=== PATIENT | male | born 1950 | race Hispanic/Latino ===

== ENCOUNTER → 2020-12-05 | Outpatient (CLI) | payer MEDICARE ==
[~2020-12-05] MED LIST: CHOL200074 PO; GLIP5TAB11 PO; LEVO50TA11 PO; LISI20TA24 PO; METF-444 PO; OMEG1CAP6 PO; SIMVASTATIN PO
== END | disposition home or self-care (01) ==
LOC: RAH 10:56
PROVIDERS: ATTEND Family Medicine
DX: M47.816 Spondylosis without myelopathy or radiculopathy, lumbar region (principal); M48.07 Spinal stenosis, lumbosacral region; M47.812 Spondylosis without myelopathy or radiculopathy, cervical region; M48.03 Spinal stenosis, cervicothoracic region
CPT/HCPCS: 72040; 72100

== ENCOUNTER 2020-12-17 11:17 | Inpatient (IN) | payer MEDICARE ==
[~2020-12-17] VITALS: Ht 152.4 cm; Wt 143.8 kg
[2020-12-17 11:40] LABS: BASOPHILS % (AUTO) 0.5 % (0.0-5.0); EOSINOPHILS % (AUTO) 1.7 % (0.0-8.0); HEMATOCRIT 36.5 % (42-54); LYMPHOCYTES % (AUTO) 29.1 % (21.0-51.0); MEAN CORPUSCULAR HEMOGLOBIN 29.5 pg (27.0-33.0); MEAN CORPUSCULAR VOLUME 86.9 fL (79-99); MONOCYTES % (AUTO) 7.6 % (3.0-13.0); NEUTROPHILS % (AUTO) 60.8 % (40.0-77.0); PLATELET COUNT (AUTO) 172 K/uL (130-400); RED CELL DISTRIBUTION WIDTH 13.5 % (11.0-15.5); WHITE BLOOD COUNT (AUTO) 7.5 K/uL (4.8-10.8)
[2020-12-17 11:41] VITALS: BP 185/83
[2020-12-17 12:00] LABS: ALBUMIN 4.2 g/dL (3.5-5.0); BILIRUBIN,TOTAL 0.8 mg/dL (0.2-1.0); POTASSIUM 4.4 mmol/L (3.5-5.1); TOTAL PROTEIN, SERUM 7.5 g/dL (6.0-8.3)
[2020-12-17] MEDS ORDERED: NITROGLYCERIN 1GM OINT 1 INCH/1GM TD ONE (12:00)
[2020-12-17] MEDS ORDERED: ASPIRIN 325MG EC TAB PO ONE (12:00)
[2020-12-17 13:11] VITALS: BP 178/91
[2020-12-17] MEDS ORDERED: DEXTROSE 50%-WATER 50 ML DISP.SYRIN IV PRN (14:30)
[2020-12-17] MEDS ORDERED: ONDANSETRON 4MG INJ IVP PRN (14:30)
[2020-12-17] MEDS ORDERED: POTASSIUM CHLORIDE 10% ELIXIR 20 MEQ/15 ML UDCUP PO PRN (14:30)
[2020-12-17] MEDS ORDERED: GLUCAGON 1MG KIT 1 MG ML IM PRN (14:30)
[2020-12-17] MEDS ORDERED: KCL 20 MEQ ERTAB PO PRN (14:30)
[2020-12-17] MEDS ORDERED: LIDOCAINE HCL-MPF 1% 2ML VIAL IV PRN ×2 (14:30)
[2020-12-17] MEDS ORDERED: ACETAMINOPHEN 325 MG TAB PO PRN (14:30)
[2020-12-17] MEDS ORDERED: POTASSIUM CHLORIDE 20MEQ/100ML 100 ML IV PRN ×2 (14:30)
[2020-12-17] MEDS: NITROGLYCERIN 1GM OINT 1 INCH/1GM TD SCH ×2 (15:21→22:53)
[2020-12-17] MEDS: LIDOCAINE 5% TOPICAL PATCH TP SCH (15:21)
[2020-12-17] MEDS: ENOXAPARIN SODIUM 30 MG/0.3 ML SQ SCH (15:23)
[2020-12-17] MEDS ORDERED: MAGNESIUM 2GM PREMIX 50ML 50 ML IV PRN (15:30)
[2020-12-17] MEDS: INSULIN HUMULIN R 100 UNIT/ML 3ML SQ SCH ×2 (16:30→21:00)
[2020-12-17] MEDS: KETOROLAC 15MG/ML VIAL (15MG/ML) IV PRN (17:53)
[2020-12-17] MEDS ORDERED: FAMOTIDINE 20MG VIAL IV SCH (21:00)
[2020-12-17] MEDS: FAMOTIDINE 20MG TAB PO SCH (21:43)
[2020-12-17] MEDS ORDERED: LISINOPRIL 20 MG TABLET PO SCH (22:00)
[2020-12-17 23:19] VITALS: BP 179/86
[2020-12-17 23:38] LABS: APPEARANCE,URINE Clear (CLEAR); BILIRUBIN,URINE Negative (NEGATIVE); COLOR,URINE Yellow (YELLOW); GLUCOSE, URINE (UA) Negative (NEGATIVE); KETONES,URINE Negative (NEGATIVE); LEUKOCYTE ESTERASE ,URINE Negative (NEGATIVE); NITRATE,URINE Negative (NEGATIVE); OCCULT BLOOD,URINE Negative (NEGATIVE); PH,URINE 6.5 (5.0-8.0); PROTEIN,URINE Negative (NEGATIVE)
[2020-12-17 23:45] LABS: AMPHET/METH SCREEN,URINE NEGATIVE (NEGATIVE); BARBITURATE SCREEN, URINE NEGATIVE (NEGATIVE); BENZODIAZEPINES SCREEN,URINE NEGATIVE (NEGATIVE); CANNABINOID SCREEN,URINE NEGATIVE (NEGATIVE); COCAINE SCREEN,URINE NEGATIVE (NEGATIVE); OPIATE SCREEN,URINE NEGATIVE (NEGATIVE); PHENCYCLIDINE SCREEN,URINE NEGATIVE (NEGATIVE)
[2020-12-18] VITALS (7 sets, daily range): BP systolic 142–170; BP diastolic 69–80
[2020-12-18] MEDS: KETOROLAC 15MG/ML VIAL (15MG/ML) IV PRN ×2 (02:48→08:58)
[2020-12-18 06:05] LABS: HEMATOCRIT 36.3 % (42-54); MEAN CORPUSCULAR HEMOGLOBIN 29.5 pg (27.0-33.0); MEAN CORPUSCULAR HGB CONC 33.6 g/dL (32.0-36.0); MEAN CORPUSCULAR VOLUME 87.7 fL (79-99); RED BLOOD CELL COUNT(AUTO) 4.14 MIL/uL (4.50-6.20); RED CELL DISTRIBUTION WIDTH 13.4 % (11.0-15.5); WHITE BLOOD COUNT (AUTO) 8.4 K/uL (4.8-10.8)
[2020-12-18] MEDS: HYDRALAZINE 20MG/ML VIAL IV PRN (06:14)
[2020-12-18 06:22] LABS: CREATININE 1.1 mg/dL (0.5-1.5); POTASSIUM 4.3 mmol/L (3.5-5.1)
[2020-12-18 06:23] LABS: INR 1.05 (0.85-1.15); PROTHROMBIN TIME 11.4 SEC (9.6-11.6)
[2020-12-18 06:25] LABS: PARTIAL THROMBOPLASTIN TIME 27.4 SEC (26.3-35.5)
[2020-12-18 06:26] LABS: HEMOGLOBIN A1C 7.3 % (4.0-6.0)
[2020-12-18 06:35] LABS: MAGNESIUM 1.6 mg/dL (1.80-2.40); THYROID STIMULATING HORMONE 3.1 uIU/mL (0.36-3.74)
[2020-12-18] MEDS: NITROGLYCERIN 1GM OINT 1 INCH/1GM TD SCH ×3 (06:51→20:30)
[2020-12-18] MEDS: INSULIN HUMULIN R 100 UNIT/ML 3ML SQ SCH ×4 (07:18→20:33)
[2020-12-18] MEDS: LIDOCAINE 5% TOPICAL PATCH TP SCH (08:58)
[2020-12-18] MEDS ORDERED: REGADENOSON 0.4 MG/5 ML PF SYG IVP SCH (09:00)
[2020-12-18] MEDS: ASPIRIN 81MG CHEW TAB PO SCH (12:53)
[2020-12-18] MEDS: LISINOPRIL 20 MG TABLET PO SCH (12:53)
[2020-12-18] MEDS: FAMOTIDINE 20MG TAB PO SCH ×2 (12:54→20:31)
[2020-12-18] MEDS: ENOXAPARIN SODIUM 30 MG/0.3 ML SQ SCH (12:54)
[2020-12-18] MEDS ORDERED: MAGNESIUM 2GM PREMIX 50ML 50 ML IV PRN (13:30)
[2020-12-18] MEDS ORDERED: OXYB5TAB15 PO (13:39)
[2020-12-18] MEDS ORDERED: NAPR-1023 PO (13:39)
[2020-12-18] MEDS ORDERED: LEVO5TAB13 PO (13:39)
[2020-12-18] MEDS ORDERED: MELO15TA12 PO (13:39)
[2020-12-18] MEDS ORDERED: OMEP40CA21 PO (13:39)
[2020-12-18] MEDS ORDERED: LINA5TAB PO (13:39)
[2020-12-18] MEDS ORDERED: MULT-685 PO (13:39)
[2020-12-18] MEDS: ACETAMINOPHEN 500 MG TABLET PO PRN ×2 (17:13→23:44)
[2020-12-19] VITALS: BP 123/69
[2020-12-19] MEDS: TRAMADOL HCL 50 MG TABLET PO PRN (03:43)
[2020-12-19 04:00] VITALS: BP 115/61
[2020-12-19] MEDS: KETOROLAC 15MG/ML VIAL (15MG/ML) IV PRN (05:19)
[2020-12-19] MEDS: NITROGLYCERIN 1GM OINT 1 INCH/1GM TD SCH ×3 (05:20→21:19)
[2020-12-19 05:42] LABS: HEMATOCRIT 33.5 % (42-54); MEAN CORPUSCULAR HEMOGLOBIN 29.9 pg (27.0-33.0); MEAN CORPUSCULAR VOLUME 87.9 fL (79-99); RED BLOOD CELL COUNT(AUTO) 3.81 MIL/uL (4.50-6.20); RED CELL DISTRIBUTION WIDTH 13.6 % (11.0-15.5); WHITE BLOOD COUNT (AUTO) 7.5 K/uL (4.8-10.8)
[2020-12-19 05:57] LABS: CREATININE 1.2 mg/dL (0.5-1.5); MAGNESIUM 2.2 mg/dL (1.80-2.40); PHOSPHORUS 3.7 mg/dL (2.5-4.9); POTASSIUM 4.3 mmol/L (3.5-5.1)
[2020-12-19] MEDS: INSULIN HUMULIN R 100 UNIT/ML 3ML SQ SCH ×4 (06:35→21:21)
[2020-12-19] MEDS: ASPIRIN 81MG CHEW TAB PO SCH (09:10)
[2020-12-19] MEDS: FAMOTIDINE 20MG TAB PO SCH ×2 (09:10→21:13)
[2020-12-19] MEDS: ENOXAPARIN SODIUM 30 MG/0.3 ML SQ SCH (09:11)
[2020-12-19] MEDS: LISINOPRIL 20 MG TABLET PO SCH (09:11)
[2020-12-19] MEDS: LIDOCAINE 5% TOPICAL PATCH TP SCH (09:11)
[2020-12-19 12:00] VITALS: BP 139/75
[2020-12-19 16:00] VITALS: BP 143/63
[2020-12-19 19:54] VITALS: BP 142/81
[2020-12-19 23:49] VITALS: BP 153/73
[2020-12-20 04:14] VITALS: BP 151/70
[2020-12-20] MEDS: NITROGLYCERIN 1GM OINT 1 INCH/1GM TD SCH ×2 (05:49→12:44)
[2020-12-20] MEDS: INSULIN HUMULIN R 100 UNIT/ML 3ML SQ SCH ×4 (05:55→20:06)
[2020-12-20 08:09] VITALS: BP 155/80
[2020-12-20] MEDS: FAMOTIDINE 20MG TAB PO SCH ×2 (08:21→20:02)
[2020-12-20] MEDS: ASPIRIN 81MG CHEW TAB PO SCH (08:21)
[2020-12-20] MEDS: LISINOPRIL 20 MG TABLET PO SCH (08:21)
[2020-12-20] MEDS: LIDOCAINE 5% TOPICAL PATCH TP SCH (08:22)
[2020-12-20] MEDS: ENOXAPARIN SODIUM 30 MG/0.3 ML SQ SCH (08:22)
[2020-12-20 11:45] VITALS: BP 152/77
[2020-12-20] MEDS: TRAMADOL HCL 50 MG TABLET PO PRN (12:44)
[2020-12-20 16:20] VITALS: BP 159/77
[2020-12-20 20:13] VITALS: BP 159/86
[2020-12-20] MEDS: HYDRALAZINE 20MG/ML VIAL IV PRN (23:07)
[2020-12-20 23:46] VITALS: BP 189/84
[2020-12-21] VITALS (28 sets, daily range): BP systolic 128–192; BP diastolic 62–101
[2020-12-21 05:16] LABS: BASOPHILS % (AUTO) 0.6 % (0.0-5.0); EOSINOPHILS % (AUTO) 2.1 % (0.0-8.0); HEMATOCRIT 34.3 % (42-54); LYMPHOCYTES % (AUTO) 31.4 % (21.0-51.0); MEAN CORPUSCULAR HEMOGLOBIN 29.6 pg (27.0-33.0); MEAN CORPUSCULAR HGB CONC 34.1 g/dL (32.0-36.0); MEAN CORPUSCULAR VOLUME 86.8 fL (79-99); MONOCYTES % (AUTO) 8.9 % (3.0-13.0); NEUTROPHILS % (AUTO) 56.7 % (40.0-77.0); PLATELET COUNT (AUTO) 167 K/uL (130-400); RED BLOOD CELL COUNT(AUTO) 3.95 MIL/uL (4.50-6.20); RED CELL DISTRIBUTION WIDTH 13.3 % (11.0-15.5); WHITE BLOOD COUNT (AUTO) 6.7 K/uL (4.8-10.8)
[2020-12-21 05:28] LABS: INR 1.01 (0.85-1.15)
[2020-12-21 05:29] LABS: PARTIAL THROMBOPLASTIN TIME 27.5 SEC (26.3-35.5)
[2020-12-21] MEDS: INSULIN HUMULIN R 100 UNIT/ML 3ML SQ SCH ×4 (05:45→21:32)
[2020-12-21 05:52] LABS: CREATININE 0.9 mg/dL (0.5-1.5)
[2020-12-21] MEDS ORDERED: SUCCINYLCHOLINE CHLORIDE 20 MG/ML 10 ML VIAL ONE (06:37)
[2020-12-21] MEDS ORDERED: LIDOCAINE PF 100MG/5ML (2%) SYRINGE 5ML ONE (06:37)
[2020-12-21] MEDS ORDERED: DEXAMETHASONE SOD PHOSPHATE 10MG/ML 1ML VIAL ONE ×2 (06:38→06:42)
[2020-12-21] MEDS ORDERED: MIDAZOLAM HCL 1 MG/ML 2ML VIAL ONE (06:38)
[2020-12-21] MEDS ORDERED: GLYCOPYRROLATE 1 MG/5 ML SYRINGE ONE (06:38)
[2020-12-21] MEDS ORDERED: PROPOFOL 10 MG/ML 20ML VIAL IV ONE (06:38)
[2020-12-21] MEDS ORDERED: ROCURONIUM 10MG/1ML SYR 10 MG/ML ML ONE (06:39)
[2020-12-21] MEDS ORDERED: NEOSTIGMINE 5MG/5ML SYR IV ONE (06:39)
[2020-12-21] MEDS ORDERED: ONDANSETRON 4MG INJ ONE (06:39)
[2020-12-21] MEDS ORDERED: FENTANYL CITRATE PF 50 MCG/1 ML 2ML VIAL ONE (06:40)
[2020-12-21] MEDS ORDERED: PHENYLEPHRINE HCL 10 MG/ML 1ML VIAL IV ONE (06:42)
[2020-12-21] MEDS ORDERED: BUPIVACAINE/EPI/PF 0.25% 30ML VIAL IJ ONE (07:00)
[2020-12-21] MEDS ORDERED: CEFAZOLIN SODIUM 1 GM VIAL ONE (07:00)
[2020-12-21] MEDS ORDERED: THROMBIN-JMI 20000 UNIT KIT TP ONE (07:00)
[2020-12-21] MEDS ORDERED: BUPIVACAINE/EPI/PF 0.5% 30ML VIAL IJ ONE (07:00)
[2020-12-21] MEDS ORDERED: 0.9%NACL 1000ML 1,000 ML IV ONE (07:06)
[2020-12-21] MEDS ORDERED: MANNITOL 20% 500ML BAG 500 ML IV ONE (07:25)
[2020-12-21] MEDS: CEFAZOLIN SODIUM 1 GM VIAL ONE ×4 (07:30→08:06)
[2020-12-21] MEDS: ENOXAPARIN SODIUM 30 MG/0.3 ML SQ SCH (08:04)
[2020-12-21] MEDS: FAMOTIDINE 20MG TAB PO SCH ×2 (08:04→20:09)
[2020-12-21] MEDS: LISINOPRIL 20 MG TABLET PO SCH (08:04)
[2020-12-21] MEDS: LIDOCAINE 5% TOPICAL PATCH TP SCH (08:05)
[2020-12-21] MEDS ORDERED: GENTAMICIN 80 MG/NS 100 ML PB 100 ML IV ONE (09:53)
[2020-12-21] MEDS ORDERED: PROMETHAZINE HCL 25 MG/ML 1ML AMPULE IM PRN (10:30)
[2020-12-21] MEDS: LACTATED RINGERS 1000ML 1,000 ML IV SCH ×2 (10:30→22:57)
[2020-12-21] MEDS ORDERED: 0.9%NACL 10ML VIAL IVP PRN (10:30)
[2020-12-21] MEDS: CEFAZOLIN SODIUM 1 GM VIAL IVP SCH ×2 (10:30→17:16)
[2020-12-21] MEDS ORDERED: HYDROCODONE/ACETAMINOPHEN 5/325 MG TAB PO PRN (10:30)
[2020-12-21] MEDS: DEXAMETHASONE SOD PHOSPHATE 4 MG/ML 1ML VIAL IVP SCH ×3 (10:30→22:19)
[2020-12-21] MEDS: PANTOPRAZOLE 40 MG TAB DR PO SCH ×2 (11:11→17:15)
[2020-12-21] MEDS ORDERED: MEPERIDINE-PF 25 MG/ML SYG ONE (11:17)
[2020-12-21] MEDS: MORPHINE 2 MG SYG IVP PRN ×2 (14:18→17:26)
[2020-12-21] MEDS: METFORMIN HCL 500 MG TABLET PO SCH (17:13)
[2020-12-21] MEDS: GLIPIZIDE 5 MG TABLET PO SCH (17:14)
[2020-12-21] MEDS: HYDRALAZINE 20MG/ML VIAL IV PRN (17:15)
[2020-12-21] MEDS: NAPROXEN 500 MG TABLET PO SCH (20:09)
[2020-12-21] MEDS: OXYBUTYNIN CHLORIDE 5 MG TABLET PO SCH (20:09)
[2020-12-21] MEDS: SIMVASTATIN 20 MG TABLET PO SCH (20:10)
[2020-12-21] MEDS: ***HM***(Levocetirizine Dihydrochloride 5 MG) PO SCH (20:28)
[2020-12-22] VITALS (7 sets, daily range): BP systolic 132–163; BP diastolic 59–83
[2020-12-22] MEDS: CEFAZOLIN SODIUM 1 GM VIAL IVP SCH ×3 (02:16→18:52)
[2020-12-22] MEDS: DEXAMETHASONE SOD PHOSPHATE 4 MG/ML 1ML VIAL IVP SCH ×4 (04:31→23:26)
[2020-12-22 05:59] LABS: HEMATOCRIT 35.5 % (42-54); MEAN CORPUSCULAR HGB CONC 34.4 g/dL (32.0-36.0); MEAN CORPUSCULAR VOLUME 87.4 fL (79-99); RED BLOOD CELL COUNT(AUTO) 4.06 MIL/uL (4.50-6.20); RED CELL DISTRIBUTION WIDTH 13.6 % (11.0-15.5); WHITE BLOOD COUNT (AUTO) 13.1 K/uL (4.8-10.8)
[2020-12-22] MEDS: INSULIN HUMULIN R 100 UNIT/ML 3ML SQ SCH ×4 (06:16→21:40)
[2020-12-22 06:20] LABS: POTASSIUM 3.9 mmol/L (3.5-5.1)
[2020-12-22] MEDS: PANTOPRAZOLE 40 MG TAB DR PO SCH ×2 (06:46→16:35)
[2020-12-22] MEDS: OXYBUTYNIN CHLORIDE 5 MG TABLET PO SCH ×2 (08:27→21:37)
[2020-12-22] MEDS: LIDOCAINE 5% TOPICAL PATCH TP SCH (08:27)
[2020-12-22] MEDS: LEVOTHYROXINE 50 MCG TABLET PO SCH (08:27)
[2020-12-22] MEDS: FAMOTIDINE 20MG TAB PO SCH ×2 (08:27→21:37)
[2020-12-22] MEDS: MULTIVITAMIN WITH MINERALS TABLET PO SCH (08:27)
[2020-12-22] MEDS: METFORMIN HCL 500 MG TABLET PO SCH ×2 (08:27→16:35)
[2020-12-22] MEDS: GLIPIZIDE 5 MG TABLET PO SCH ×2 (08:27→16:35)
[2020-12-22] MEDS: LINAGLIPTIN 5 MG TABLET PO SCH (08:27)
[2020-12-22] MEDS: LISINOPRIL 20 MG TABLET PO SCH ×2 (08:28)
[2020-12-22] MEDS: ENOXAPARIN SODIUM 30 MG/0.3 ML SQ SCH (08:28)
[2020-12-22] MEDS: NAPROXEN 500 MG TABLET PO SCH ×2 (08:33→21:38)
[2020-12-22] MEDS: MELOXICAM 7.5 MG TABLET PO SCH (08:33)
[2020-12-22] MEDS: LACTATED RINGERS 1000ML 1,000 ML IV SCH (13:10)
[2020-12-22] MEDS: ***HM***(Levocetirizine Dihydrochloride 5 MG) PO SCH (21:00)
[2020-12-22] MEDS: SIMVASTATIN 20 MG TABLET PO SCH (21:38)
[2020-12-23] MEDS: LACTATED RINGERS 1000ML 1,000 ML IV SCH ×2 (01:34→15:50)
[2020-12-23] MEDS: CEFAZOLIN SODIUM 1 GM VIAL IVP SCH ×3 (02:29→18:22)
[2020-12-23 04:00] VITALS: BP 140/57
[2020-12-23] MEDS: DEXAMETHASONE SOD PHOSPHATE 4 MG/ML 1ML VIAL IVP SCH ×4 (04:50→22:54)
[2020-12-23 05:28] LABS: HEMATOCRIT 30.3 % (42-54); MEAN CORPUSCULAR HEMOGLOBIN 30.1 pg (27.0-33.0); MEAN CORPUSCULAR HGB CONC 34.3 g/dL (32.0-36.0); MEAN CORPUSCULAR VOLUME 87.6 fL (79-99); RED BLOOD CELL COUNT(AUTO) 3.46 MIL/uL (4.50-6.20); RED CELL DISTRIBUTION WIDTH 13.6 % (11.0-15.5); WHITE BLOOD COUNT (AUTO) 11.3 K/uL (4.8-10.8)
[2020-12-23 05:42] LABS: MAGNESIUM 2.1 mg/dL (1.80-2.40); PHOSPHORUS 2.6 mg/dL (2.5-4.9); POTASSIUM 4.7 mmol/L (3.5-5.1)
[2020-12-23] MEDS: INSULIN HUMULIN R 100 UNIT/ML 3ML SQ SCH ×4 (05:51→20:51)
[2020-12-23] MEDS: PANTOPRAZOLE 40 MG TAB DR PO SCH ×2 (06:43→16:53)
[2020-12-23 08:00] VITALS: BP 148/70
[2020-12-23] MEDS: GLIPIZIDE 5 MG TABLET PO SCH ×2 (08:04→16:53)
[2020-12-23] MEDS: METFORMIN HCL 500 MG TABLET PO SCH ×2 (08:04→16:54)
[2020-12-23] MEDS: LEVOTHYROXINE 50 MCG TABLET PO SCH (08:04)
[2020-12-23] MEDS: OXYBUTYNIN CHLORIDE 5 MG TABLET PO SCH ×2 (08:54→20:53)
[2020-12-23] MEDS: NAPROXEN 500 MG TABLET PO SCH ×2 (08:55→20:53)
[2020-12-23] MEDS: FAMOTIDINE 20MG TAB PO SCH ×2 (08:55→20:53)
[2020-12-23] MEDS: MULTIVITAMIN WITH MINERALS TABLET PO SCH (08:55)
[2020-12-23] MEDS: LINAGLIPTIN 5 MG TABLET PO SCH (08:55)
[2020-12-23] MEDS: MELOXICAM 7.5 MG TABLET PO SCH (08:55)
[2020-12-23] MEDS: LISINOPRIL 20 MG TABLET PO SCH ×2 (09:00)
[2020-12-23] MEDS: LIDOCAINE 5% TOPICAL PATCH TP SCH (09:00)
[2020-12-23] MEDS: ENOXAPARIN SODIUM 30 MG/0.3 ML SQ SCH (09:01)
[2020-12-23 12:00] VITALS: BP 153/73
[2020-12-23 16:00] VITALS: BP 140/68
[2020-12-23 20:00] VITALS: BP 143/65
[2020-12-23] MEDS: SIMVASTATIN 20 MG TABLET PO SCH (20:53)
[2020-12-23] MEDS: ***HM***(Levocetirizine Dihydrochloride 5 MG) PO SCH (20:54)
[2020-12-24] VITALS: BP 141/57
[2020-12-24] MEDS: CEFAZOLIN SODIUM 1 GM VIAL IVP SCH ×3 (02:29→18:03)
[2020-12-24 04:00] VITALS: BP 154/66
[2020-12-24] MEDS: DEXAMETHASONE SOD PHOSPHATE 4 MG/ML 1ML VIAL IVP SCH ×3 (04:30→15:59)
[2020-12-24] MEDS: LACTATED RINGERS 1000ML 1,000 ML IV SCH ×2 (04:34→16:00)
[2020-12-24 05:02] LABS: HEMATOCRIT 31.3 % (42-54); MEAN CORPUSCULAR HEMOGLOBIN 29.8 pg (27.0-33.0); MEAN CORPUSCULAR HGB CONC 33.5 g/dL (32.0-36.0); MEAN CORPUSCULAR VOLUME 88.9 fL (79-99); RED BLOOD CELL COUNT(AUTO) 3.52 MIL/uL (4.50-6.20); RED CELL DISTRIBUTION WIDTH 13.7 % (11.0-15.5); WHITE BLOOD COUNT (AUTO) 10.6 K/uL (4.8-10.8)
[2020-12-24 05:23] LABS: CREATININE 0.9 mg/dL (0.5-1.5); POTASSIUM 4.1 mmol/L (3.5-5.1)
[2020-12-24] MEDS: INSULIN HUMULIN R 100 UNIT/ML 3ML SQ SCH ×4 (05:24→20:17)
[2020-12-24] MEDS: PANTOPRAZOLE 40 MG TAB DR PO SCH ×2 (06:27→16:46)
[2020-12-24 08:59] VITALS: BP 151/53
[2020-12-24] MEDS: GLIPIZIDE 5 MG TABLET PO SCH ×2 (09:45→16:46)
[2020-12-24] MEDS: FAMOTIDINE 20MG TAB PO SCH ×2 (09:45→20:21)
[2020-12-24] MEDS: OXYBUTYNIN CHLORIDE 5 MG TABLET PO SCH ×2 (09:45→20:21)
[2020-12-24] MEDS: LINAGLIPTIN 5 MG TABLET PO SCH (09:45)
[2020-12-24] MEDS: LISINOPRIL 20 MG TABLET PO SCH ×2 (09:45→09:50)
[2020-12-24] MEDS: MELOXICAM 7.5 MG TABLET PO SCH (09:45)
[2020-12-24] MEDS: METFORMIN HCL 500 MG TABLET PO SCH ×2 (09:46→16:46)
[2020-12-24] MEDS: MULTIVITAMIN WITH MINERALS TABLET PO SCH (09:46)
[2020-12-24] MEDS: LEVOTHYROXINE 50 MCG TABLET PO SCH (09:46)
[2020-12-24] MEDS: NAPROXEN 500 MG TABLET PO SCH ×2 (09:46→20:21)
[2020-12-24] MEDS: ENOXAPARIN SODIUM 30 MG/0.3 ML SQ SCH (09:50)
[2020-12-24] MEDS: LIDOCAINE 5% TOPICAL PATCH TP SCH (09:50)
[2020-12-24 12:01] VITALS: BP 185/85
[2020-12-24] MEDS: HYDRALAZINE 20MG/ML VIAL IV PRN (13:04)
[2020-12-24 15:53] VITALS: BP 143/66
[2020-12-24 19:48] VITALS: BP 134/55
[2020-12-24] MEDS: SIMVASTATIN 20 MG TABLET PO SCH (20:21)
[2020-12-24] MEDS: ***HM***(Levocetirizine Dihydrochloride 5 MG) PO SCH (20:21)
[2020-12-25] VITALS (7 sets, daily range): BP systolic 129–178; BP diastolic 51–81
[2020-12-25] MEDS: CEFAZOLIN SODIUM 1 GM VIAL IVP SCH ×3 (02:03→18:32)
[2020-12-25] MEDS: INSULIN HUMULIN R 100 UNIT/ML 3ML SQ SCH ×4 (06:25→20:44)
[2020-12-25] MEDS: PANTOPRAZOLE 40 MG TAB DR PO SCH ×2 (06:31→17:02)
[2020-12-25] MEDS: GLIPIZIDE 5 MG TABLET PO SCH ×3 (08:00→17:02)
[2020-12-25] MEDS: LEVOTHYROXINE 50 MCG TABLET PO SCH (08:32)
[2020-12-25] MEDS: METFORMIN HCL 500 MG TABLET PO SCH ×2 (08:32→17:02)
[2020-12-25] MEDS ORDERED: LACTULOSE 20 GM/30 ML UDCUP PO PRN (09:00)
[2020-12-25] MEDS: LISINOPRIL 20 MG TABLET PO SCH ×2 (09:00→09:27)
[2020-12-25] MEDS: LIDOCAINE 5% TOPICAL PATCH TP SCH (09:19)
[2020-12-25] MEDS: OXYBUTYNIN CHLORIDE 5 MG TABLET PO SCH ×2 (09:21→20:40)
[2020-12-25] MEDS ORDERED: OXYMETAZOLINE HCL SPRAY 15 ML BOTTLE EN SCH (09:30)
[2020-12-25] MEDS: MULTIVITAMIN WITH MINERALS TABLET PO SCH (09:30)
[2020-12-25] MEDS: FAMOTIDINE 20MG TAB PO SCH ×2 (09:30→20:40)
[2020-12-25] MEDS ORDERED: NACL NASAL SPRAY 120 SPRAY/BOTTLE NS PRN (09:30)
[2020-12-25] MEDS: LINAGLIPTIN 5 MG TABLET PO SCH (09:34)
[2020-12-25] MEDS: HYDRALAZINE 20MG/ML VIAL IV PRN (13:26)
[2020-12-25] MEDS: ***HM***(Levocetirizine Dihydrochloride 5 MG) PO SCH (20:40)
[2020-12-25] MEDS: SIMVASTATIN 20 MG TABLET PO SCH (20:40)
[2020-12-26] MEDS: CEFAZOLIN SODIUM 1 GM VIAL IVP SCH ×2 (02:22→11:12)
[2020-12-26 03:48] VITALS: BP 148/60
[2020-12-26 05:17] LABS: MEAN CORPUSCULAR HEMOGLOBIN 29.3 pg (27.0-33.0); MEAN CORPUSCULAR HGB CONC 33.1 g/dL (32.0-36.0); MEAN CORPUSCULAR VOLUME 88.7 fL (79-99); RED BLOOD CELL COUNT(AUTO) 4.06 MIL/uL (4.50-6.20); RED CELL DISTRIBUTION WIDTH 13.8 % (11.0-15.5)
[2020-12-26 05:36] LABS: CREATININE 0.9 mg/dL (0.5-1.5)
[2020-12-26] MEDS: INSULIN HUMULIN R 100 UNIT/ML 3ML SQ SCH ×2 (06:04→11:30)
[2020-12-26] MEDS: PANTOPRAZOLE 40 MG TAB DR PO SCH (07:16)
[2020-12-26 07:54] VITALS: BP 174/65
[2020-12-26] MEDS: MULTIVITAMIN WITH MINERALS TABLET PO SCH (08:27)
[2020-12-26] MEDS: FAMOTIDINE 20MG TAB PO SCH (08:27)
[2020-12-26] MEDS: METFORMIN HCL 500 MG TABLET PO SCH (08:27)
[2020-12-26] MEDS: LINAGLIPTIN 5 MG TABLET PO SCH (08:28)
[2020-12-26] MEDS: OXYBUTYNIN CHLORIDE 5 MG TABLET PO SCH (08:28)
[2020-12-26] MEDS: LEVOTHYROXINE 50 MCG TABLET PO SCH (08:28)
[2020-12-26] MEDS: GLIPIZIDE 5 MG TABLET PO SCH (08:28)
[2020-12-26] MEDS: LIDOCAINE 5% TOPICAL PATCH TP SCH (08:29)
[2020-12-26] MEDS: LISINOPRIL 20 MG TABLET PO SCH ×2 (08:32)
[2020-12-26] MEDS: HYDRALAZINE 20MG/ML VIAL IV PRN (11:12)
[2020-12-26 11:58] VITALS: BP 164/60
== END 2020-12-26 17:15 | DRG 472 ==
LOC: EDH 11:17 → EDHIP 14:26 → OBSVTOIN 14:26 → 3CH 12-18 04:46 → EDHIP 12-18 05:03 → 3CH 12-18 07:15
PROVIDERS: ADMIT Internal Medicine Pulmonary Disease; ATTEND Internal Medicine Pulmonary Disease
PROC: 01N10ZZ Release Cervical Nerve, Open Approach (ICD-10-PCS; principal; 2020-12-21 07:30)
PROC: 0RG20A0 Fusion of 2 or more Cervical Vertebral Joints with Interbody Fusion Device, Anterior Approach, Anterior Column, Open Approach (ICD-10-PCS; 2020-12-21 07:30)
DX: M48.02 Spinal stenosis, cervical region (principal); M50.01 Cervical disc disorder with myelopathy, high cervical region; M19.90 Unspecified osteoarthritis, unspecified site; E11.9 Type 2 diabetes mellitus without complications; E03.9 Hypothyroidism, unspecified; I10 Essential (primary) hypertension; I45.10 Unspecified right bundle-branch block; Z20.822 Contact with and (suspected) exposure to COVID-19; E78.00 Pure hypercholesterolemia, unspecified; E78.5 Hyperlipidemia, unspecified; G47.00 Insomnia, unspecified; M25.78 Osteophyte, vertebrae; R04.0 Epistaxis; Z79.84 Long term (current) use of oral hypoglycemic drugs; Z79.899 Other long term (current) drug therapy
CPT/HCPCS: 36415; 71045; 72020; 72125; 72131; 72141; 72146; 72148; 78452; 80048; 80053; 80061; 80305; 81003; 82550; 82948; 83036; 83735; 83874; 83880; 84100; 84443; 84484; 85025; 85027; 85610; 85730; 87635; 93005; 93017; 96374; 97039; A4344; A9500; G0378; J0330; J0360; J0690; J1100; J1580; J1650; J1815; J1885; J2001; J2175; J2250; J2370; J2405; J2704; J2710; J2785; J3010; J3475; J3490; J7030

== ENCOUNTER → 2021-01-17 | Outpatient (CLI) | payer MEDICARE ==
[~2021-01-17] MED LIST changes: -CHOL200074 PO; +LEVO5TAB13 PO; +LINA5TAB PO; +MELO15TA12 PO; +MULT-685 PO; +NAPR-1023 PO; -OMEG1CAP6 PO; +OMEP40CA21 PO; +OXYB5TAB15 PO
== END | disposition home or self-care (01) ==
LOC: OIH 09:01
PROVIDERS: ATTEND Internal Medicine
DX: M50.00 Cervical disc disorder with myelopathy, unspecified cervical region (principal); M25.78 Osteophyte, vertebrae; M47.22 Other spondylosis with radiculopathy, cervical region; E03.8 Other specified hypothyroidism
CPT/HCPCS: 72040

== ENCOUNTER 2021-09-05 17:20 | Emergency (ER) | payer MEDICARE ==
[~2021-09-05] VITALS: Ht 152.4 cm; Wt 51.7 kg
[~2021-09-05 17:20] MED LIST changes: +FLUT16H NS; +LINA290C PO; +ONDA-104 PO; +PANT40TA54 PO; +SIMV-43 PO; -SIMVASTATIN PO; +TAMS-1 PO
[2021-09-05 18:04] LABS: BASOPHILS % (AUTO) 0.5 % (0.0-5.0); EOSINOPHILS % (AUTO) 1.9 % (0.0-8.0); HEMATOCRIT 31.7 % (42-54); LYMPHOCYTES % (AUTO) 35.1 % (21.0-51.0); MEAN CORPUSCULAR HEMOGLOBIN 29.6 pg (27.0-33.0); MEAN CORPUSCULAR HGB CONC 34.1 g/dL (32.0-36.0); MEAN CORPUSCULAR VOLUME 86.8 fL (79-99); MONOCYTES % (AUTO) 9.3 % (3.0-13.0); NEUTROPHILS % (AUTO) 52.8 % (40.0-77.0); PLATELET COUNT (AUTO) 161 K/uL (130-400); RED BLOOD CELL COUNT(AUTO) 3.65 MIL/uL (4.50-6.20); RED CELL DISTRIBUTION WIDTH 12.9 % (11.0-15.5); WHITE BLOOD COUNT (AUTO) 5.7 K/uL (4.8-10.8)
[2021-09-05 18:14] LABS: CARBON DIOXIDE 26 mmol/L (21-32); CHLORIDE 92 mmol/L (101-111); CREATININE 1.1 mg/dL (0.5-1.5); GLOMERULAR FILTR. RATE CALC 70 mL/min (>60); GLUCOSE,RANDOM 147 mg/dL (70-105); POTASSIUM 5.4 mmol/L (3.5-5.1); SODIUM SERUM 126 mmol/L (136-145); UREA NITROGEN, BLOOD 11 mg/dL (7-18)
[2021-09-05 18:20] LABS: ALANINE AMINOTRANSFERASE 33 U/L (12-78); ALBUMIN 4.2 g/dL (3.5-5.0); AMYLASE 70 U/L (25-115); ASPARTATE AMINOTRANSFERASE 29 U/L (10-37); BILIRUBIN,TOTAL 0.7 mg/dL (0.2-1.0); LIPASE < 50 U/L (114-286); TOTAL PROTEIN, SERUM 7.2 g/dL (6.0-8.3)
[2021-09-05 19:48] LABS: APPEARANCE,URINE Clear (CLEAR); BILIRUBIN,URINE Negative (NEGATIVE); COLOR,URINE Yellow (YELLOW); GLUCOSE, URINE (UA) TRACE mg/dL (NEGATIVE); KETONES,URINE Negative (NEGATIVE); LEUKOCYTE ESTERASE ,URINE Negative (NEGATIVE); NITRATE,URINE Negative (NEGATIVE); OCCULT BLOOD,URINE Negative (NEGATIVE); PH,URINE 5.5 (5.0-8.0); PROTEIN,URINE Negative (NEGATIVE); UROBILINOGEN,URINE 0.2 mg/dL (0.2-1.0)
[2021-09-05 20:07] LABS: BACTERIA,URINE Rare /HPF (None Seen); RBC,URINE 0-1 /HPF (0-1); SQUAMOUS EPITHELIAL CELL,UR Rare /HPF (0-2); WBC,URINE 0-1 /HPF (0-1)
[2021-09-05 21:48] VITALS: BP 131/70
== END 2021-09-05 22:23 | disposition left against medical advice (07) ==
LOC: EDH 17:20
DX: R11.2 Nausea with vomiting, unspecified (principal); R19.7 Diarrhea, unspecified; Z53.21 Procedure and treatment not carried out due to patient leaving prior to being seen by health care provider
CPT/HCPCS: 36415; 80053; 81001; 82150; 83690; 85025; 93005

== ENCOUNTER → 2023-02-05 | Outpatient (CLI) | payer OTHER, MEDICARE ==
[~2023-02-05] MED LIST changes: -GLIP5TAB11 PO; +GLIP5TAB15 PO; -OXYB5TAB15 PO; +OXYB5TAB20 PO
== END | disposition home or self-care (01) ==
LOC: RAH 14:27
PROVIDERS: ATTEND Psychiatry & Neurology Neurology
DX: G31.9 Degenerative disease of nervous system, unspecified (principal); R90.82 White matter disease, unspecified; R41.3 Other amnesia
CPT/HCPCS: 70551

== ENCOUNTER → 2023-08-20 | Outpatient (CLI) | payer OTHER, MEDICARE | END | disposition home or self-care (01) | LOC: OIH 08:59 | PROVIDERS: ATTEND Internal Medicine | DX: J06.9 Acute upper respiratory infection, unspecified (principal); I70.0 Atherosclerosis of aorta; M47.815 Spondylosis without myelopathy or radiculopathy, thoracolumbar region | CPT/HCPCS: 71046 ==